=== PATIENT | female | born 1960 | race African-American/Black ===

== ENCOUNTER 2016-12-26 15:45 | Emergency (ER) | payer OTHER ==
[~2016-12-26] VITALS: Ht 170.2 cm; Wt 159.0 kg
[~2016-12-26 15:45] MED LIST: EAR DROPS15 ML RIGHT EAR; FLEXERIL10 MG PO; GABAPENTIN300 MG PO; HYDROCODON-ACE1 EAC7 PO; MOBIC15 MG PO; MOTRIN600 MG PO; MOTRIN800 MG PO; PERCOCET 5/31 TABLET PO; TIZANIDINE HCL4 MG PO; TRAMADOL HCL50 MG PO
[2016-12-26 16:36] LABS: CHLORIDE 109 mEq/L (99-109); HEMATOCRIT 37.2 % (36.0-46.0); MCH 21.3 PG (29.0-34.0); MCHC 30.6 G/DL (30.0-36.0); MCV 69.7 FL (83-99); MEAN PLAT.VOLUME 9.4 uM^3 (9.5-12.4); PLATELET COUNT 300 K/uL (156-360); POTASSIUM 3.4 mEq/L (3.7-5.4); RBC DIS.WIDTH-CV 16.1 % (11.8-14.6); RBC DIS.WIDTH-SD 39.8 % (39-53); RED BLOOD COUNT 5.34 M/uL (3.80-5.20); SODIUM 143 mEq/L (136-147); WHITE BLOOD COUNT 7.6 K/uL (4.1-10.2)
[2016-12-26 16:38] LABS: GLUCOSE 134 mg/dL (70-99)
[2016-12-26 16:39] LABS: ANION GAP 11 MEQ/L (2-14)
[2016-12-26 16:42] LABS: GFR ESTIMATE (CALCULATED) > 59 mL/min/
[2016-12-26 16:43] LABS: UREA NITROGEN (BUN) 13 mg/dL (9-23)
[2016-12-26 17:07] VITALS: BP 145/83
== END 2016-12-26 17:09 | disposition home or self-care (01) ==
LOC: EME 15:45
PROVIDERS: Physician Assistant
DX: K62.5 Hemorrhage of anus and rectum (principal); F17.200 Nicotine dependence, unspecified, uncomplicated
CPT/HCPCS: 80048; 85027; 86900; 86901; 99281; 99284

== ENCOUNTER → 2017-04-18 | Outpatient (CLI) | payer OTHER ==
[~2017-04-18] VITALS: Ht 170.2 cm; Wt 162.3 kg
[~2017-04-18] MED LIST changes: +CLINORIL200 MG PO; +LORTAB 5-325 M1 EACH PO; +ZANAFLEX4 M1 PO
== END | disposition home or self-care (01) ==
LOC: AMB 13:22
PROC: 0DJDXZZ Inspection of Lower Intestinal Tract, External Approach (ICD-10-PCS; principal; 2017-04-18)
DX: K62.5 Hemorrhage of anus and rectum (principal); Z53.09 Procedure and treatment not carried out because of other contraindication

== ENCOUNTER → 2017-04-19 | Outpatient (CLI) | payer OTHER | END | disposition home or self-care (01) | LOC: AMB 11:00 | PROC: 0DJD8ZZ Inspection of Lower Intestinal Tract, Via Natural or Artificial Opening Endoscopic (ICD-10-PCS; principal; 2017-04-19) | DX: K64.8 Other hemorrhoids (principal); K59.00 Constipation, unspecified; K92.1 Melena; E66.01 Morbid (severe) obesity due to excess calories; Z68.43 Body mass index [BMI] 50.0-59.9, adult; Z82.3 Family history of stroke; Z83.3 Family history of diabetes mellitus; F17.210 Nicotine dependence, cigarettes, uncomplicated | CPT/HCPCS: J2250 ==

== ENCOUNTER 2017-08-04 12:03 | Day surgery (SDC) | payer OTHER ==
[~2017-08-04] VITALS: Ht 170.2 cm; Wt 162.3 kg
== END 2017-08-04 14:50 | disposition home or self-care (01) ==
LOC: PAIN 12:03 → SDC 13:00 → PAIN 13:00
DX: M47.26 Other spondylosis with radiculopathy, lumbar region (principal); M51.16 Intervertebral disc disorders with radiculopathy, lumbar region; M48.061 Spinal stenosis, lumbar region without neurogenic claudication; M25.511 Pain in right shoulder; M19.91 Primary osteoarthritis, unspecified site; M75.50 Bursitis of unspecified shoulder; E66.01 Morbid (severe) obesity due to excess calories; Z68.43 Body mass index [BMI] 50.0-59.9, adult; M16.0 Bilateral primary osteoarthritis of hip; Z79.891 Long term (current) use of opiate analgesic; F17.200 Nicotine dependence, unspecified, uncomplicated
CPT/HCPCS: J1030; J2250; J3010; S0020

== ENCOUNTER 2017-09-27 10:03 | Day surgery (SDC) | payer OTHER ==
[~2017-09-27] VITALS: Ht 170.2 cm; Wt 159.1 kg
== END 2017-09-27 12:45 | disposition home or self-care (01) ==
LOC: PAIN 10:03
DX: M47.26 Other spondylosis with radiculopathy, lumbar region (principal); M51.16 Intervertebral disc disorders with radiculopathy, lumbar region; M79.1 Myalgia; M16.0 Bilateral primary osteoarthritis of hip; E66.01 Morbid (severe) obesity due to excess calories; Z68.43 Body mass index [BMI] 50.0-59.9, adult; F41.9 Anxiety disorder, unspecified; F17.200 Nicotine dependence, unspecified, uncomplicated
CPT/HCPCS: J1030; J2250; J3010; S0020

== ENCOUNTER 2018-02-23 08:36 | Day surgery (SDC) | payer OTHER | END 2018-02-23 11:45 | disposition home or self-care (01) | LOC: PAIN 08:36 → SDC 10:15 → PAIN 10:15 | DX: M51.16 Intervertebral disc disorders with radiculopathy, lumbar region (principal); M47.26 Other spondylosis with radiculopathy, lumbar region; M48.061 Spinal stenosis, lumbar region without neurogenic claudication; M75.50 Bursitis of unspecified shoulder; F17.200 Nicotine dependence, unspecified, uncomplicated; Z79.891 Long term (current) use of opiate analgesic | CPT/HCPCS: J1100; J2250 ==

== ENCOUNTER 2018-03-23 09:11 | Day surgery (SDC) | payer OTHER ==
[~2018-03-23 09:11] MED LIST changes: +ADVIL200 MG PO; +CENTRUM SILVER1 EAC3 PO
== END 2018-03-23 11:04 | disposition home or self-care (01) ==
LOC: PAIN 09:11 → SDC 10:15 → PAIN 11:04
DX: M51.16 Intervertebral disc disorders with radiculopathy, lumbar region (principal); M47.26 Other spondylosis with radiculopathy, lumbar region; M48.061 Spinal stenosis, lumbar region without neurogenic claudication; E66.01 Morbid (severe) obesity due to excess calories; Z68.43 Body mass index [BMI] 50.0-59.9, adult; F17.200 Nicotine dependence, unspecified, uncomplicated; Z79.891 Long term (current) use of opiate analgesic
CPT/HCPCS: J1100; J2250; J3010